=== PATIENT | male | born 1995 | race Caucasian/White ===

== ENCOUNTER 2020-02-25 00:46 | Emergency (ER) | payer SELFPAY ==
[~2020-02-25] VITALS: Ht 180.3 cm; Wt 59.0 kg
[~2020-02-25 00:46] MED LIST: BUSP5 PO; CEPH500 PO; CITA20 PO; CODACEE120 PO; Cleocin HCl150 MG PO; DIPH50 PO; DULO60 PO; Desyrel50 MG PO; IBUP600 PO; LORA1 PO; Norco 5-325 Ta1 EACH PO; OLAN10 PO; OLAN5 PO; RISP1 PO; SULTRIEL PO; TRAZ150T57; TRAZ50 PO; Vistaril25 MG PO
== END 2020-02-25 01:33 | disposition home or self-care (01) ==
LOC: ER 00:46
DX: S09.90XA Unspecified injury of head, initial encounter (principal); F17.210 Nicotine dependence, cigarettes, uncomplicated; X58.XXXA Exposure to other specified factors, initial encounter
CPT/HCPCS: 70450; 99284-25